=== PATIENT | female | born 1960 | race Caucasian/White ===

== ENCOUNTER 2020-07-21 09:54 | Inpatient (IN) | payer BC ==
[2020-07-21] MEDS ORDERED: SODIUM CHLORIDE 1,000 ML IV STA ×2 (11:14→13:19)
[2020-07-21] MEDS ORDERED: ONDANSETRON 4 MG/2 ML VIAL IVPUSH ONE (11:15)
[2020-07-21] MEDS ORDERED: KETOROLAC TROMETHAMINE 30 MG/1 ML VIAL IVPUSH ONE (11:15)
[2020-07-21] MEDS ORDERED: KETOROLAC TROMETHAMINE 30 MG/1 ML VIAL ONE (11:17)
[2020-07-21] MEDS ORDERED: ONDANSETRON 4 MG/2 ML VIAL ONE ×2 (11:17→17:14)
[2020-07-21 11:22] LABS: BASO % 0.5 % (0-2.0); HEMATOCRIT 49.8 % (32.4-45.2); HEMOGLOBIN 16.9 GM/dL (10.7-15.3); LYMPH % 5.5 % (8-40); MCH 32.7 pg (25.7-33.7); MCHC 33.9 g/dl (32.0-36.0); MEAN CELL VOLUME 96.4 fl (80-96); MEAN PLT VOLUME 7.7 fl (7.5-11.1); MONO % 3.8 % (3.8-10.2); NEUT % 90.2 % (42.8-82.8); PLATELET COUNT 286 K/MM3 (134-434); RBC 5.16 M/mm3 (3.60-5.2); RDW 12.6 % (11.6-15.6); WHITE BLOOD COUNT 23.9 K/mm3 (4.0-10.0)
[2020-07-21 11:40] LABS: POTASSIUM 3.6 mmol/L (3.5-5.1)
[2020-07-21 11:42] LABS: CALCIUM 8.7 mg/dL (8.5-10.1)
[2020-07-21 11:43] LABS: ALBUMIN 3.7 g/dl (3.4-5.0); BLOOD UREA NITROGEN 19.7 mg/dL (7-18)
[2020-07-21 11:46] LABS: CREATININE 1.1 mg/dL (0.55-1.3)
[2020-07-21 11:47] LABS: BILIRUBIN,TOTAL 1.7 mg/dL (0.2-1); TOT PROT 7.2 g/dl (6.4-8.2)
[2020-07-21] MEDS ORDERED: morphine CARPU-JECT 4 MG/1 ML DISP.SYRIN IVPUSH ONE (13:03)
[2020-07-21] MEDS ORDERED: morphine SULFATE 4 MG/ML VIAL ONE (13:11)
[2020-07-21] MEDS ORDERED: PIPERACILLIN/TAZOB 3.375 GM 3.375 GM in DEXTROSE 5%-WATER - 50 ML IVPB ONE (13:18)
[2020-07-21] MEDS ORDERED: PIPERACILLIN/TAZOB 3.375 GM 3.375 GM/50 ML BAG IVPB ONE (13:28)
[2020-07-21 13:45] LABS: ANISOCYTOSIS 0; MACROCYTOSIS 1+; PLATELET ESTIMATE NORMAL
[2020-07-21 14:27] LABS: EPI CELLS 30 /uL (0-25.1); HYALINE CASTS 5 /uL (0-3.1); PH,URINE 5.5 (5.0-8.0); URINE APPEARANCE CLOUDY; URINE BACTERIA 792 /uL (0-1359); URINE BILIRUBIN NEGATIVE (NEGATIVE); URINE COLOR DK YELLOW; URINE GLUCOSE (UA) NEGATIVE (NEGATIVE); URINE KETONE 1+ (NEGATIVE); URINE LEUK ESTERASE NEGATIVE (NEGATIVE); URINE NITRITE NEGATIVE (NEGATIVE); URINE PROTEIN 2+ (NEGATIVE); URINE WBC 29 /uL (0-25.8)
[2020-07-21] MEDS ORDERED: SODIUM CHLORIDE 0.9% 500 ML INFUS.BAG IV ONE (15:48)
[2020-07-21] MEDS: SODIUM CHLORIDE 1,000 ML IV SCH ×2 (15:56→17:06)
[2020-07-21] MEDS: ONDANSETRON 4 MG/2 ML VIAL IVPUSH PRN ×2 (17:19→23:30)
[2020-07-21] MEDS: morphine SULFATE 4 MG/ML VIAL IVPUSH PRN ×2 (17:19→22:59)
[2020-07-21] MEDS: MUPIROCIN CA 2% TOPICAL CREAM 15 GM TUBE TP SCH (22:26)
[2020-07-21] MEDS: HEPARIN NA (PORCINE) 5,000 UNITS/ML 1ML VIAL SQ SCH (22:27)
[2020-07-21] MEDS: CHLORHEXIDINE GLUCONATE 4% CLEANSER FOR DECOLONIZATION TP SCH (22:28)
[2020-07-21] MEDS: FAMOTIDINE 20 MG/50 ML IVPB 20 MG/50 ML MG IVPB SCH (22:28)
[2020-07-22] MEDS: HEPARIN NA (PORCINE) 5,000 UNITS/ML 1ML VIAL SQ SCH ×3 (05:43→21:21)
[2020-07-22] MEDS: ONDANSETRON 4 MG/2 ML VIAL IVPUSH PRN (05:45)
[2020-07-22 07:10] LABS: BASO % 0.2 % (0-2.0); HEMOGLOBIN 13.5 GM/dL (10.7-15.3); LYMPH % 5.1 % (8-40); MCH 32.5 pg (25.7-33.7); MCHC 33.7 g/dl (32.0-36.0); MEAN CELL VOLUME 96.5 fl (80-96); MEAN PLT VOLUME 7.7 fl (7.5-11.1); MONO % 4.2 % (3.8-10.2); NEUT % 90.5 % (42.8-82.8); PLATELET COUNT 220 K/MM3 (134-434); RBC 4.14 M/mm3 (3.60-5.2); RDW 12.8 % (11.6-15.6); WHITE BLOOD COUNT 20.3 K/mm3 (4.0-10.0)
[2020-07-22 07:36] LABS: POTASSIUM 3.8 mmol/L (3.5-5.1)
[2020-07-22 07:38] LABS: ALBUMIN 2.7 g/dl (3.4-5.0); BLOOD UREA NITROGEN 14.3 mg/dL (7-18)
[2020-07-22 07:40] LABS: CALCIUM 7.5 mg/dL (8.5-10.1)
[2020-07-22 07:41] LABS: MAGNESIUM 1.7 mg/dL (1.8-2.4)
[2020-07-22 07:42] LABS: CREATININE 0.8 mg/dL (0.55-1.3)
[2020-07-22 07:43] LABS: BILIRUBIN,TOTAL 0.9 mg/dL (0.2-1); PHOSPHOROUS 2.3 mg/dL (2.5-4.9)
[2020-07-22 07:44] LABS: TOT PROT 5.6 g/dl (6.4-8.2)
[2020-07-22] MEDS ORDERED: PT OWN MED DRAWER 7, Y5N ONE (08:43)
[2020-07-22] MEDS ORDERED: METOPROLOL TARTRATE 5 MG/5 ML VIAL IVPUSH STA (08:44)
[2020-07-22] MEDS ORDERED: MAG HYDROX/AL HYDROX/SIMETH 30 ML UNIT-DOSE CUP PO STA (08:44)
[2020-07-22 09:07] LABS: ANISOCYTOSIS 1+; MACROCYTOSIS 1+; PLATELET ESTIMATE NORMAL; TOXIC GRANULATION 2+
[2020-07-22] MEDS: FAMOTIDINE 20 MG/50 ML IVPB 20 MG/50 ML MG IVPB SCH ×2 (09:19→21:22)
[2020-07-22] MEDS: MUPIROCIN CA 2% TOPICAL CREAM 15 GM TUBE TP SCH ×2 (12:00→21:22)
[2020-07-22] MEDS: morphine SULFATE 4 MG/ML VIAL IVPUSH PRN ×3 (13:30→21:25)
[2020-07-22] MEDS: SODIUM CHLORIDE 1,000 ML IV SCH (20:32)
[2020-07-22] MEDS: CHLORHEXIDINE GLUCONATE 4% CLEANSER FOR DECOLONIZATION TP SCH (21:22)
[2020-07-23] MEDS: morphine SULFATE 4 MG/ML VIAL IVPUSH PRN ×5 (00:07→20:20)
[2020-07-23] MEDS: HEPARIN NA (PORCINE) 5,000 UNITS/ML 1ML VIAL SQ SCH ×3 (05:36→22:12)
[2020-07-23] MEDS ORDERED: POTASSIUM PHOSPHATE 20 MM in SODIUM CHLORIDE 250 ML IVPB ONE (07:40)
[2020-07-23] MEDS ORDERED: MAGNESIUM SULF 50% (8.12 MEQ/2 ML-1 GM VIAL) IVPB ONE (07:40)
[2020-07-23] MEDS: FAMOTIDINE 20 MG/50 ML IVPB 20 MG/50 ML MG IVPB SCH ×2 (09:22→22:13)
[2020-07-23] MEDS: MUPIROCIN CA 2% TOPICAL CREAM 15 GM TUBE TP SCH ×2 (09:33→21:56)
[2020-07-23] MEDS: dilTIAZem HCL 50 MG/10 ML - 10 ML VIAL IVPUSH PRN ×2 (09:33→14:34)
[2020-07-23 12:14] LABS: BASO % 0.3 % (0-2.0); EOS % 0.1 % (0-4.5); HEMATOCRIT 37.1 % (32.4-45.2); HEMOGLOBIN 12.3 GM/dL (10.7-15.3); LYMPH % 6.4 % (8-40); MCHC 33.1 g/dl (32.0-36.0); MEAN CELL VOLUME 96.7 fl (80-96); MEAN PLT VOLUME 7.5 fl (7.5-11.1); MONO % 5.4 % (3.8-10.2); NEUT % 87.8 % (42.8-82.8); PLATELET COUNT 207 K/MM3 (134-434); RBC 3.83 M/mm3 (3.60-5.2); RDW 12.7 % (11.6-15.6)
[2020-07-23 12:36] LABS: POTASSIUM 3.5 mmol/L (3.5-5.1)
[2020-07-23 12:38] LABS: CALCIUM 7.9 mg/dL (8.5-10.1)
[2020-07-23 12:39] LABS: ALBUMIN 2.3 g/dl (3.4-5.0); BLOOD UREA NITROGEN 11.4 mg/dL (7-18); MAGNESIUM 2.5 mg/dL (1.8-2.4)
[2020-07-23 12:41] LABS: CREATININE 0.6 mg/dL (0.55-1.3)
[2020-07-23 12:42] LABS: PHOSPHOROUS 1.8 mg/dL (2.5-4.9)
[2020-07-23 12:43] LABS: BILIRUBIN,TOTAL 0.7 mg/dL (0.2-1); TOT PROT 5.4 g/dl (6.4-8.2)
[2020-07-23] MEDS ORDERED: PT OWN MED DRAWER 7, Y5N ONE (13:25)
[2020-07-23] MEDS ORDERED: ONDANSETRON 4 MG/2 ML VIAL IVPUSH PRN (14:47)
[2020-07-23] MEDS ORDERED: SODIUM CHLORIDE 1,000 ML IV SCH (14:47)
[2020-07-23] MEDS ORDERED: dilTIAZem HCL 50 MG/10 ML - 10 ML VIAL IVPUSH PRN (14:47)
[2020-07-23] MEDS: CHLORHEXIDINE GLUCONATE 4% CLEANSER FOR DECOLONIZATION TP SCH (21:59)
[2020-07-24] MEDS: morphine SULFATE 4 MG/ML VIAL IVPUSH PRN ×4 (03:08→20:35)
[2020-07-24] MEDS: HEPARIN NA (PORCINE) 5,000 UNITS/ML 1ML VIAL SQ SCH ×3 (06:49→22:55)
[2020-07-24] MEDS: MUPIROCIN CA 2% TOPICAL CREAM 15 GM TUBE TP SCH ×2 (09:11→22:46)
[2020-07-24] MEDS: FAMOTIDINE 20 MG/50 ML IVPB 20 MG/50 ML MG IVPB SCH ×2 (09:24→22:55)
[2020-07-24 11:51] LABS: BASO % 0.2 % (0-2.0); EOS % 0.2 % (0-4.5); HEMOGLOBIN 11.6 GM/dL (10.7-15.3); LYMPH % 8.2 % (8-40); MCH 32.1 pg (25.7-33.7); MCHC 33.2 g/dl (32.0-36.0); MEAN CELL VOLUME 96.6 fl (80-96); MEAN PLT VOLUME 7.4 fl (7.5-11.1); MONO % 7.5 % (3.8-10.2); NEUT % 83.9 % (42.8-82.8); PLATELET COUNT 242 K/MM3 (134-434); RBC 3.62 M/mm3 (3.60-5.2); RDW 12.8 % (11.6-15.6); WHITE BLOOD COUNT 13.8 K/mm3 (4.0-10.0)
[2020-07-24 12:18] LABS: POTASSIUM 3.5 mmol/L (3.5-5.1)
[2020-07-24 12:20] LABS: CALCIUM 7.3 mg/dL (8.5-10.1)
[2020-07-24 12:21] LABS: ALBUMIN 2.1 g/dl (3.4-5.0); MAGNESIUM 2.2 mg/dL (1.8-2.4)
[2020-07-24 12:23] LABS: CREATININE 0.5 mg/dL (0.55-1.3)
[2020-07-24 12:24] LABS: PHOSPHOROUS 2.3 mg/dL (2.5-4.9)
[2020-07-24 12:25] LABS: BILIRUBIN,TOTAL 0.6 mg/dL (0.2-1); TOT PROT 5.3 g/dl (6.4-8.2)
[2020-07-24] MEDS ORDERED: SODIUM CHLORIDE 1,000 ML IV SCH (14:30)
[2020-07-24] MEDS ORDERED: INDOMETHACIN 50 MG RECTAL SUPPOSITORY PR ONE ×2 (14:40→15:00)
[2020-07-24] MEDS ORDERED: MIDAZOLAM HCL 2 MG/2 ML SINGLE DOSE VIAL ONE (15:31)
[2020-07-24 16:01] LABS: INR 1.23 (0.83-1.09)
[2020-07-24 17:09] LABS: ACTIVATED PTT 25.4 SECONDS (25.2-36.5)
[2020-07-24] MEDS ORDERED: FUROSEMIDE 40 MG/4 ML INJECTABLE VIAL IVPUSH ONE (17:39)
[2020-07-24] MEDS: CHLORHEXIDINE GLUCONATE 4% CLEANSER FOR DECOLONIZATION TP SCH (22:46)
[2020-07-25] MEDS: HEPARIN NA (PORCINE) 5,000 UNITS/ML 1ML VIAL SQ SCH ×3 (07:09→21:55)
[2020-07-25 08:29] LABS: BASO % 0.3 % (0-2.0); EOS % 0.6 % (0-4.5); HEMOGLOBIN 12.1 GM/dL (10.7-15.3); LYMPH % 10.3 % (8-40); MCH 33.2 pg (25.7-33.7); MCHC 34.7 g/dl (32.0-36.0); MEAN CELL VOLUME 95.8 fl (80-96); MEAN PLT VOLUME 7.4 fl (7.5-11.1); NEUT % 80.8 % (42.8-82.8); PLATELET COUNT 248 K/MM3 (134-434); RBC 3.65 M/mm3 (3.60-5.2); RDW 12.4 % (11.6-15.6); WHITE BLOOD COUNT 13.4 K/mm3 (4.0-10.0)
[2020-07-25 09:16] LABS: INR 1.28 (0.83-1.09); PROTHROMBIN TIME (PATIENT) 15.4 SEC (9.7-13.0)
[2020-07-25] MEDS: FAMOTIDINE 20 MG/50 ML IVPB 20 MG/50 ML MG IVPB SCH ×2 (10:09→21:57)
[2020-07-25] MEDS: MUPIROCIN CA 2% TOPICAL CREAM 15 GM TUBE TP SCH (10:12)
[2020-07-25] MEDS: morphine SULFATE 4 MG/ML VIAL IVPUSH PRN ×2 (12:31→21:55)
[2020-07-25 13:31] LABS: ALBUMIN 2.2 g/dl (3.4-5.0); BILIRUBIN,TOTAL 0.6 mg/dL (0.2-1); BLOOD UREA NITROGEN 9.9 mg/dL (7-18); CALCIUM 7.6 mg/dL (8.5-10.1); CREATININE 0.7 mg/dL (0.55-1.3); POTASSIUM 3.1 mmol/L (3.5-5.1); TOT PROT 5.2 g/dl (6.4-8.2)
[2020-07-25] MEDS ORDERED: POTASSIUM CHLORIDE ORAL LIQUID 20 MEQ/15 ML PO ONE (14:15)
[2020-07-25] MEDS: LISINOPRIL 5 MG TABLET PO SCH (15:10)
[2020-07-26] MEDS: HEPARIN NA (PORCINE) 5,000 UNITS/ML 1ML VIAL SQ SCH ×3 (06:39→21:52)
[2020-07-26 08:26] LABS: BASO % 0.6 % (0-2.0); EOS % 0.5 % (0-4.5); HEMATOCRIT 35.5 % (32.4-45.2); HEMOGLOBIN 12.2 GM/dL (10.7-15.3); LYMPH % 11.9 % (8-40); MCH 32.3 pg (25.7-33.7); MCHC 34.4 g/dl (32.0-36.0); MEAN CELL VOLUME 93.9 fl (80-96); MEAN PLT VOLUME 7.2 fl (7.5-11.1); MONO % 9.2 % (3.8-10.2); NEUT % 77.8 % (42.8-82.8); PLATELET COUNT 279 K/MM3 (134-434); RBC 3.78 M/mm3 (3.60-5.2); RDW 12.4 % (11.6-15.6); WHITE BLOOD COUNT 13.1 K/mm3 (4.0-10.0)
[2020-07-26 08:39] LABS: POTASSIUM 3.1 mmol/L (3.5-5.1)
[2020-07-26 08:42] LABS: CALCIUM 7.8 mg/dL (8.5-10.1)
[2020-07-26 08:43] LABS: ALBUMIN 2.2 g/dl (3.4-5.0); BLOOD UREA NITROGEN 8.4 mg/dL (7-18); MAGNESIUM 1.9 mg/dL (1.8-2.4)
[2020-07-26 08:46] LABS: CREATININE 0.5 mg/dL (0.55-1.3)
[2020-07-26 08:47] LABS: BILIRUBIN,TOTAL 1.2 mg/dL (0.2-1); TOT PROT 5.4 g/dl (6.4-8.2)
[2020-07-26] MEDS: FAMOTIDINE 20 MG/50 ML IVPB 20 MG/50 ML MG IVPB SCH ×2 (10:14→21:52)
[2020-07-26] MEDS: LISINOPRIL 5 MG TABLET PO SCH (10:14)
[2020-07-26] MEDS ORDERED: POTASSIUM CHLORIDE ORAL LIQUID 20 MEQ/15 ML PO ONE (12:22)
[2020-07-26 12:24] VITALS: BMI 34.1
[2020-07-26] MEDS: KCL 10 MEQ IVPB 10 MEQ/100 ML INFUS.BAG IVPB SCH ×3 (12:54→18:22)
[2020-07-27 06:56] LABS: BASO % 0.2 % (0-2.0); EOS % 0.8 % (0-4.5); HEMATOCRIT 35.2 % (32.4-45.2); LYMPH % 14.7 % (8-40); MCH 32.3 pg (25.7-33.7); MCHC 34.1 g/dl (32.0-36.0); MEAN CELL VOLUME 94.7 fl (80-96); MONO % 8.1 % (3.8-10.2); NEUT % 76.2 % (42.8-82.8); PLATELET COUNT 285 K/MM3 (134-434); RBC 3.72 M/mm3 (3.60-5.2); RDW 12.8 % (11.6-15.6); WHITE BLOOD COUNT 11.3 K/mm3 (4.0-10.0)
[2020-07-27 07:08] LABS: POTASSIUM 3.4 mmol/L (3.5-5.1)
[2020-07-27 07:14] LABS: BLOOD UREA NITROGEN 8.6 mg/dL (7-18)
[2020-07-27 07:15] LABS: ALBUMIN 2.1 g/dl (3.4-5.0); CALCIUM 7.8 mg/dL (8.5-10.1)
[2020-07-27 07:16] LABS: MAGNESIUM 1.9 mg/dL (1.8-2.4)
[2020-07-27 07:19] LABS: BILIRUBIN,TOTAL 1.1 mg/dL (0.2-1); CREATININE 0.6 mg/dL (0.55-1.3); PHOSPHOROUS 3.5 mg/dL (2.5-4.9)
[2020-07-27 07:20] LABS: TOT PROT 5.4 g/dl (6.4-8.2)
[2020-07-27] MEDS: LISINOPRIL 5 MG TABLET PO SCH (09:35)
[2020-07-27] MEDS: FAMOTIDINE 20 MG/50 ML IVPB 20 MG/50 ML MG IVPB SCH (09:35)
[2020-07-27] MEDS ORDERED: POTASSIUM CHLORIDE ORAL LIQUID 20 MEQ/15 ML PO ONE (13:20)
[2020-07-27] MEDS ORDERED: CEFAZOLIN 1 GM/D5W 2 GM/100 ML BAG ONE (13:39)
[2020-07-27] MEDS ORDERED: MIDAZOLAM HCL 2 MG/2 ML SINGLE DOSE VIAL ONE (14:54)
[2020-07-27] MEDS ORDERED: ONDANSETRON 4 MG/2 ML VIAL IVPUSH PRN (15:03)
[2020-07-27] MEDS ORDERED: PROMETHAZINE HCL 25 MG/1 ML VIAL IVPB PRN (15:03)
[2020-07-27] MEDS ORDERED: LACTATED RINGERS SOLUTION 1,000 ML IV SCH (15:15)
[2020-07-27] MEDS: PROPOFOL 1,000,000 MCG/100 ML VIAL IVPB SCH (15:30)
[2020-07-27] MEDS ORDERED: PHYTONADIONE 10 MG/1 ML AMP IVPB ONE (15:31)
[2020-07-27] MEDS ORDERED: PROPOFOL 1,000,000 MCG/100 ML VIAL ONE (15:32)
[2020-07-27] MEDS ORDERED: DEXTROSE 5%-LACTATED RINGERS 1,000 ML IV SCH (15:45)
[2020-07-27] MEDS: HEPARIN NA (PORCINE) 5,000 UNITS/ML 1ML VIAL SQ SCH ×2 (16:39→21:43)
[2020-07-27] MEDS: CEFAZOLIN 2 GM/D5W 2 GM/50 ML ML IVPB SCH (17:59)
[2020-07-27] MEDS: LACTATED RINGERS SOLUTION 1,000 ML IV SCH (18:00)
[2020-07-27] MEDS ORDERED: MIDAZOLAM IN 0.9 % SOD.CHLORID 1 MG/1 ML PLAST..BAG ONE (20:06)
[2020-07-27] MEDS ORDERED: MIDAZOLAM IN 0.9 % SOD.CHLORID 100 MG/100 ML PLAST..BAG IVPB SCH (20:15)
[2020-07-27] MEDS: PANTOPRAZOLE SODIUM 40 MG VIAL IVPUSH SCH (21:43)
[2020-07-28] MEDS: CEFAZOLIN 2 GM/D5W 2 GM/50 ML ML IVPB SCH ×3 (01:32→17:37)
[2020-07-28] MEDS: HEPARIN NA (PORCINE) 5,000 UNITS/ML 1ML VIAL SQ SCH ×3 (06:32→22:00)
[2020-07-28] MEDS ORDERED: VASOPRESSIN 20 UNITS/ML VIAL IV ONE (07:05)
[2020-07-28] MEDS ORDERED: PT OWN MED DRAWER 7, Y5N ONE (07:15)
[2020-07-28 07:26] LABS: BASO % 0.5 % (0-2.0); EOS % 0.4 % (0-4.5); HEMATOCRIT 31.8 % (32.4-45.2); HEMOGLOBIN 10.9 GM/dL (10.7-15.3); LYMPH % 18.5 % (8-40); MCH 32.6 pg (25.7-33.7); MCHC 34.2 g/dl (32.0-36.0); MEAN CELL VOLUME 95.3 fl (80-96); MEAN PLT VOLUME 7.2 fl (7.5-11.1); MONO % 6.2 % (3.8-10.2); NEUT % 74.4 % (42.8-82.8); PLATELET COUNT 278 K/MM3 (134-434); RBC 3.34 M/mm3 (3.60-5.2); RDW 12.5 % (11.6-15.6); WHITE BLOOD COUNT 10.3 K/mm3 (4.0-10.0)
[2020-07-28 07:39] LABS: INR 1.34 (0.83-1.09); PROTHROMBIN TIME (PATIENT) 16.1 SEC (9.7-13.0)
[2020-07-28 07:56] LABS: POTASSIUM 3.7 mmol/L (3.5-5.1)
[2020-07-28 08:02] LABS: CALCIUM 7.7 mg/dL (8.5-10.1)
[2020-07-28 08:03] LABS: BLOOD UREA NITROGEN 12.2 mg/dL (7-18); MAGNESIUM 1.9 mg/dL (1.8-2.4)
[2020-07-28 08:05] LABS: CREATININE 0.7 mg/dL (0.55-1.3); PHOSPHOROUS 5.5 mg/dL (2.5-4.9)
[2020-07-28 08:06] LABS: BILIRUBIN,TOTAL 0.4 mg/dL (0.2-1)
[2020-07-28 08:13] LABS: BILIRUBIN,DIRECT 0.2 mg/dL (0.0-0.2)
[2020-07-28] MEDS: PANTOPRAZOLE SODIUM 40 MG VIAL IVPUSH SCH ×2 (10:17→22:00)
[2020-07-28] MEDS: LISINOPRIL 5 MG TABLET PO SCH (10:17)
[2020-07-28] MEDS ORDERED: ALBUTEROL SO4 0.083% IH SOL 2.5 MG/3 ML VIAL.NEB. NEB PRN (14:30)
[2020-07-28] MEDS: PROPOFOL 1,000,000 MCG/100 ML VIAL IVPB SCH (15:02)
[2020-07-28] MEDS: LACTATED RINGERS SOLUTION 1,000 ML IV SCH (17:37)
[2020-07-29] MEDS: CEFAZOLIN 2 GM/D5W 2 GM/50 ML ML IVPB SCH ×3 (02:48→18:50)
[2020-07-29] MEDS: HEPARIN NA (PORCINE) 5,000 UNITS/ML 1ML VIAL SQ SCH ×2 (07:53→14:38)
[2020-07-29 07:56] LABS: POTASSIUM 3.5 mmol/L (3.5-5.1)
[2020-07-29 08:00] LABS: ALBUMIN 2.1 g/dl (3.4-5.0); BLOOD UREA NITROGEN 12.3 mg/dL (7-18); CALCIUM 7.6 mg/dL (8.5-10.1)
[2020-07-29 08:03] LABS: CREATININE 0.8 mg/dL (0.55-1.3)
[2020-07-29 08:04] LABS: BILIRUBIN,DIRECT 0.2 mg/dL (0.0-0.2)
[2020-07-29 08:05] LABS: BILIRUBIN,TOTAL 0.8 mg/dL (0.2-1); TOT PROT 5.2 g/dl (6.4-8.2)
[2020-07-29 08:30] LABS: HEMATOCRIT 33.8 % (32.4-45.2); HEMOGLOBIN 11.3 GM/dL (10.7-15.3); MCH 32.1 pg (25.7-33.7); MCHC 33.5 g/dl (32.0-36.0); MEAN CELL VOLUME 95.8 fl (80-96); MEAN PLT VOLUME 7.1 fl (7.5-11.1); PLATELET COUNT 306 K/MM3 (134-434); RBC 3.53 M/mm3 (3.60-5.2); RDW 12.5 % (11.6-15.6); WHITE BLOOD COUNT 13.8 K/mm3 (4.0-10.0)
[2020-07-29] MEDS: LISINOPRIL 5 MG TABLET PO SCH (09:46)
[2020-07-29] MEDS: PANTOPRAZOLE SODIUM 40 MG VIAL IVPUSH SCH (09:46)
[2020-07-29] MEDS: LACTATED RINGERS SOLUTION 1,000 ML IV SCH ×2 (14:48→19:11)
[2020-07-29 20:15] VITALS: BP 151/78; PULSE 77; TEMP 98.4
== END 2020-07-29 20:33 | disposition short-term general hospital (02) | DRG 438 ==
LOC: JER 09:54 → JERBED 13:21 → JICU 15:02 → J8W 07-23 15:03 → JICU 07-27 15:38
PROVIDERS: ADMIT Internal Medicine Pulmonary Disease; ATTEND Internal Medicine Pulmonary Disease
PROC: 0FJB8ZZ Inspection of Hepatobiliary Duct, Via Natural or Artificial Opening Endoscopic (ICD-10-PCS; principal; 2020-07-27 13:30)
DX: K85.10 Biliary acute pancreatitis without necrosis or infection (principal); J96.01 Acute respiratory failure with hypoxia; E87.1 Hypo-osmolality and hyponatremia; J90 Pleural effusion, not elsewhere classified; R18.8 Other ascites; J98.11 Atelectasis; K80.50 Calculus of bile duct without cholangitis or cholecystitis without obstruction; E86.0 Dehydration; R74.01 Elevation of levels of liver transaminase levels; F17.200 Nicotine dependence, unspecified, uncomplicated; D72.829 Elevated white blood cell count, unspecified
CPT/HCPCS: 36415; 71045-TC-FY; 71046-TC-FY; 74181-TC; 76705-TC; 80048; 80053; 80076; 81003; 82150; 82248; 83036; 83605; 83690; 83735; 84100; 84439; 84443; 84481; 85025; 85027; 85610; 85730; 86140; 86850; 86900; 86901; 93005; 93010; 94002; 94760; 99285-25; C9803; J1644; U0003